=== PATIENT | male | born 1945 | race Caucasian/White ===

== ENCOUNTER → 2016-07-22 | Day surgery (SDC) | payer MEDICARE, OTHER ==
[~2016-07-22] MED LIST: BUPIVACAINE/EPINEPHRINE 0.25% PF 10 ML VIAL ONE; KETOROLAC TROMETHAMINE 30 MG/ML (IVP) VIAL IV PUSH ONE; LACTATED RINGER'S 1000 ML INJ 1,000 ML ONE; MIDAZOLAM HCL 2 MG/2 ML VIAL ONE; ONDANSETRON HCL 4 MG/2 ML VIAL IV PUSH ONE; PROPOFOL 500 MG/50 ML BTL IV ONE; ceFAZolin 2 GM PREMIX 50 ML ONE
--- NOTE | 2016-07-24 13:56 | MP ---
cc: [facility] DATE OF SURGERY: 07/22/2016 PREOPERATIVE DIAGNOSIS Painful deep soft tissue mass x2, bilateral feet. POSTOPERATIVE DIAGNOSIS Painful deep soft tissue mass x2, bilateral feet. PROCEDURE PERFORMED Excision of deep soft tissue mass, two on the left, two on the right. SPECIMEN Deep mass right foot and x2 on the left. ESTIMATED BLOOD LOSS Less than 30 mL. COMPLICATIONS None. ANESTHESIA General with local, approximately 25 ccs of 0.25% Marcaine with epinephrine. COMPLICATIONS None. TOURNIQUET TIME None. PLAN OF ACTIVITY PACU then discharge home once stable per same-day surgery criteria. JUSTIFICATION FOR PROCEDURE A pleasant 70-year-old male with deep calluses and masses of the bilateral feet underneath the first and fifth metatarsal head. We have tried debriding and offloading in the office and they are extremely painful. We devised a plan to move forward of excision of the mass under general anesthesia and a biopsy would be performed. PROCEDURE IN DETAIL Under mild sedation the patient was brought to the operating room, placed on the operating table in the supine position. Following the induction of general anesthesia, local anesthesia was obtained about the masses utilizing 0.25% Marcaine plain. The bilateral feet were then scrubbed, prepped and draped in the usual aseptic fashion. Of examining the right foot debridement of the superficial epidermis took place and there was noted to be a 5 mm x 5 mm, 6 mm deep mass that went below the dermal junction. It appeared to stop at the deep fascia and did not involve bone or tendon sheath. This was excised full-thickness and sent off for pathological analysis. Bovie and cautery took place of the bleeders that were encountered. A bulky bandage was placed. The first metatarsal head of the right foot was also examined. There is a 3 mm x 3 mm with a 4 mm deep mass that went beyond dermis. This was sharply excised full-thickness, Bovie and ligation took place. A bulky bandage was placed. The left foot was then examined underneath the first and the fifth metatarsal head. There is noted to be symmetrical 4 mm x 4 mm x 4 mm nonpigmented full-thickness mass that went beyond dermis, it did not involve bone, tendon or ligament and appeared to stay superficial to the fascia. Bovie and ligation took place. A bulky bandage was placed. The three specimens were sent off for pathological analysis. The patient was transferred from OR to PACU with all vital signs stable. He is heel weight-bear on the right and full weight-bear to tolerance on the left with bandages to stay clean, dry and intact to wearing postop shoes. I will see the patient within 3-5 days and have advised accordingly. ARISTIDES Little/ALVARO /3:53 PM /1:39 PM
== END | disposition home or self-care (01) ==
LOC: ESDC 12:50
PROVIDERS: ATTEND Podiatrist Foot & Ankle Surgery
DX: B07.0 Plantar wart (principal); L85.9 Epidermal thickening, unspecified
CPT/HCPCS: 00400; 28039; 88304; 88311; J0690; J1885; J2250; J2405; J3010; J7120; 88305